=== PATIENT | male | born 1985 | race Caucasian/White ===

== ENCOUNTER → 2017-01-03 | Outpatient (CLI) | payer BC | LOC: M OUTALCOH 10:04 | PROVIDERS: ATTEND Psychiatry & Neurology Psychiatry | DX: F10.10 Alcohol abuse, uncomplicated (principal) ==

== ENCOUNTER 2017-01-21 11:51 | Outpatient (RCR) | payer BC | END 2017-02-17 | LOC: M OUTALCOH 11:51 | PROVIDERS: ATTEND Psychiatry & Neurology Psychiatry | DX: F10.20 Alcohol dependence, uncomplicated (principal); Z72.0 Tobacco use ==

== ENCOUNTER 2017-10-31 12:33 | Inpatient (IN) | payer BC, OTHER, MEDICAID ==
[2017-10-31 14:22] LABS: HEMATOCRIT 45.7 % (42.0-52.0); HEMOGLOBIN 15.4 g/dl (13.5-17.5); MEAN CORPUSCULAR HEMOGLOBIN 30.2 pg (27.0-33.0); MEAN CORPUSCULAR HGB CONC 33.7 g/dl (32.0-36.5); MEAN CORPUSCULAR VOLUME 89.6 fl (80.0-96.0); PLATELET COUNT, AUTOMATED 170 10^3/uL (150-450); RED CELL DISTRIBUTION WIDTH 13.5 % (11.5-14.5); WHITE BLOOD COUNT 4.8 10^3/uL (4.0-10.0)
[2017-10-31 14:41] LABS: AMPHETAMINES LEVEL URINE NEGATIVE (NEGATIVE); BARBITURATES URINE NEGATIVE (NEGATIVE); BENZODIAZEPINES URINE NEGATIVE (NEGATIVE); CANNABINOIDS URINE POSITIVE (NEGATIVE); COCAINE METABOLITE URINE POSITIVE (NEGATIVE); METHADONE URINE NEGATIVE (NEGATIVE); OPIATES URINE NEGATIVE (NEGATIVE); PHENCYCLIDINE URINE NEGATIVE (NEGATIVE)
[2017-10-31 14:53] LABS: ALBUMIN 3.9 GM/DL (3.2-5.2); ALBUMIN/GLOBULIN RATIO 1.26 (1.00-1.93); ALKALINE PHOSPHATASE 81 U/L (45-117); ALT/SGPT 31 U/L (12-78); ANION GAP 8 MEQ/L (8-16); AST/SGOT 9 U/L (7-37); BILIRUBIN,DIRECT 0.1 MG/DL (0.0-0.2); BILIRUBIN,TOTAL 0.4 MG/DL (0.2-1.0); BLOOD UREA NITROGEN 9 MG/DL (7-18); CALCIUM LEVEL 8.6 MG/DL (8.5-10.1); CARBON DIOXIDE LEVEL 29 MEQ/L (21-32); CHLORIDE LEVEL 109 MEQ/L (98-107); CREATININE FOR GFR 0.85 MG/DL (0.70-1.30); GLOMERULAR FILTRATION RATE > 60.0 (>60); GLUCOSE, FASTING 105 MG/DL (70-100); POTASSIUM SERUM 4.6 MEQ/L (3.5-5.1); SALICYLATE LEVEL < 1.7 MG/DL (5.0-30.0); SODIUM LEVEL 146 MEQ/L (136-145); THYROID STIMULATING HORMONE 0.321 uIU/ML (0.358-3.740)
[2017-10-31 14:56] LABS: ACETAMINOPHEN LEVEL < 2.0 UG/ML (10.0-30.0)
[2017-10-31] MEDS ORDERED: MAALOX 30 ML SUSP *UDC PO (20:30)
[2017-10-31] MEDS ORDERED: LORazepam 1 MG TAB PO (20:30)
[2017-10-31] MEDS ORDERED: MOM 30ML SUSPENSION UDC PO (20:30)
[2017-10-31] MEDS ORDERED: ACETAMINOPHEN TAB 650MG DOSE (2X325MG) PO (20:30)
[2017-10-31] MEDS ORDERED: traZODone 50 MG TAB PO (20:30)
[2017-10-31] MEDS ORDERED: OXAZEPAM 15 MG CAP PO (20:30)
[2017-11-01] MEDS: THIAMINE 100 MG TAB PO (10:27)
[2017-11-01] MEDS: MULTIVITAMINS/MINERALS THERAP 1 TAB PO (10:27)
[2017-11-01] MEDS: FOLIC ACID 1 MG TAB PO (10:27)
[2017-11-01 13:13] LABS: ANION GAP 6 MEQ/L (8-16); BLOOD UREA NITROGEN 16 MG/DL (7-18); CARBON DIOXIDE LEVEL 31 MEQ/L (21-32); CHLORIDE LEVEL 104 MEQ/L (98-107); CPK CREATINE PHOSPHOKINASE 137 U/L (39-308); CREATININE FOR GFR 0.99 MG/DL (0.70-1.30); GLOMERULAR FILTRATION RATE > 60.0 (>60); GLUCOSE, FASTING 116 MG/DL (70-100); POTASSIUM SERUM 4.6 MEQ/L (3.5-5.1); SODIUM LEVEL 141 MEQ/L (136-145)
[2017-11-01] MEDS ORDERED: hydrOXYzine 25 MG TAB PO (15:15)
[2017-11-02 07:33] LABS: ALBUMIN/GLOBULIN RATIO 1.29 (1.00-1.93); ALKALINE PHOSPHATASE 84 U/L (45-117); ALT/SGPT 31 U/L (12-78); ANION GAP 6 MEQ/L (8-16); AST/SGOT 6 U/L (7-37); BLOOD UREA NITROGEN 12 MG/DL (7-18); CALCIUM LEVEL 8.6 MG/DL (8.5-10.1); CARBON DIOXIDE LEVEL 33 MEQ/L (21-32); CHLORIDE LEVEL 102 MEQ/L (98-107); CREATININE FOR GFR 1.11 MG/DL (0.70-1.30); FREE THYROXINE INDEX 2.8 % (1.4-3.8); GLOMERULAR FILTRATION RATE > 60.0 (>60); GLUCOSE, FASTING 87 MG/DL (70-100); MAGNESIUM LEVEL 2.1 MG/DL (1.8-2.4); POTASSIUM SERUM 3.9 MEQ/L (3.5-5.1); SODIUM LEVEL 141 MEQ/L (136-145); T UPTAKE 36 % (33-40); THYROXINE (T4) 7.9 UG/DL (4.5-12.0); TOTAL PROTEIN 7.1 GM/DL (6.4-8.2)
[2017-11-02] MEDS: MULTIVITAMINS/MINERALS THERAP 1 TAB PO (08:31)
[2017-11-02] MEDS: SERTRALINE HCL 50 MG TAB PO (08:31)
[2017-11-02] MEDS: FOLIC ACID 1 MG TAB PO (08:31)
[2017-11-02] MEDS: THIAMINE 100 MG TAB PO (08:31)
[2017-11-03] MEDS: FOLIC ACID 1 MG TAB PO (08:29)
[2017-11-03] MEDS: THIAMINE 100 MG TAB PO (08:30)
[2017-11-03] MEDS: SERTRALINE HCL 50 MG TAB PO (08:30)
[2017-11-03] MEDS: MULTIVITAMINS/MINERALS THERAP 1 TAB PO (08:30)
== END 2017-11-03 10:35 | disposition home or self-care (01) | DRG 754 ==
LOC: M ED 12:33 → M ED INP 16:41 → M PSY 18:01
DX: F32.9 Major depressive disorder, single episode, unspecified (principal); E87.0 Hyperosmolality and hypernatremia; F41.8 Other specified anxiety disorders; F60.6 Avoidant personality disorder; F12.90 Cannabis use, unspecified, uncomplicated; F14.90 Cocaine use, unspecified, uncomplicated; F17.200 Nicotine dependence, unspecified, uncomplicated

== ENCOUNTER → 2017-11-11 | Outpatient (CLI) | payer BC | LOC: M OUTALCOH 09:19 | DX: F10.20 Alcohol dependence, uncomplicated (principal) ==

== ENCOUNTER 2017-11-25 11:25 | Outpatient (RCR) | payer BC | END 2017-12-18 | LOC: M OUTALCOH 11:25 | DX: F10.20 Alcohol dependence, uncomplicated (principal); F14.10 Cocaine abuse, uncomplicated; Z72.0 Tobacco use ==

== ENCOUNTER 2022-10-18 22:00 | Inpatient (IN) | payer BC ==
[~2022-10-18] VITALS: Ht 185.4 cm; Wt 82.6 kg
[~2022-10-18 22:00] MED LIST: SERT-141 PO; TRAZ1TAB10 PO
[2022-10-18 23:14] LABS: HEMOGLOBIN 15.2 g/dl (13.5-17.5); MEAN CORPUSCULAR HEMOGLOBIN 30.6 pg (27.0-33.0); MEAN CORPUSCULAR HGB CONC 33.8 g/dl (32.0-36.5); MEAN CORPUSCULAR VOLUME 90.7 fl (80.0-96.0); PLATELET COUNT, AUTOMATED 206 10^3/uL (150-450); RED BLOOD COUNT 4.96 10^6/uL (4.30-6.10); WHITE BLOOD COUNT 5.6 10^3/uL (4.0-10.0)
[2022-10-18 23:32] LABS: AMPHETAMINES LEVEL URINE NEGATIVE (NEGATIVE); BARBITURATES URINE NEGATIVE (NEGATIVE); BENZODIAZEPINES URINE NEGATIVE (NEGATIVE); METHADONE URINE NEGATIVE (NEGATIVE); OPIATES URINE NEGATIVE (NEGATIVE)
[2022-10-18 23:33] LABS: PHENCYCLIDINE URINE NEGATIVE (NEGATIVE)
[2022-10-18 23:34] LABS: ETHYL ALCOHOL (ETHANOL) 0.003 % (0.000-0.010)
[2022-10-18 23:36] LABS: SALICYLATE LEVEL < 3.0 MG/DL (<30)
[2022-10-18 23:37] LABS: ACETAMINOPHEN LEVEL < 2.0 UG/ML (10.0-20.0); CANNABINOIDS URINE POSITIVE (NEGATIVE); COCAINE METABOLITE URINE POSITIVE (NEGATIVE)
[2022-10-18 23:38] LABS: THYROID STIMULATING HORMONE 1.221 uIU/ML (0.55-4.78)
[2022-10-18 23:40] LABS: ALBUMIN 4.4 G/DL (3.2-5.2); ALKALINE PHOSPHATASE 91 U/L (46-116); ALT/SGPT 22 U/L (7.0-40); AST/SGOT < 8 U/L (<34); BILIRUBIN,DIRECT 0.1 MG/DL (<0.4); BILIRUBIN,TOTAL 0.5 MG/DL (0.3-1.2); BLOOD UREA NITROGEN 16 MG/DL (9-23); CALCIUM LEVEL 8.8 MG/DL (8.5-10.1); CARBON DIOXIDE LEVEL 29 MMOL/L (20-31); CHLORIDE LEVEL 103 MMOL/L (98-107); GLOMERULAR FILTRATION RATE > 60.0 (>60); GLUCOSE, FASTING 78 MG/DL (60-100); POTASSIUM SERUM 4.3 MMOL/L (3.5-5.1); SODIUM LEVEL 142 MMOL/L (136-145); TOTAL PROTEIN 6.9 G/DL (5.7-8.2)
[2022-10-19] MEDS ORDERED: HOME MED LIST COMPLETE! XX SCH (03:15)
[2022-10-19] MEDS ORDERED: IBUPROFEN 400MG TAB PO PRN (12:45)
[2022-10-19] MEDS ORDERED: ACETAMINOPHEN TAB 650MG DOSE (2X325MG) PO PRN (12:45)
[2022-10-19] MEDS ORDERED: traZODone 50 MG TAB PO PRN (12:45)
[2022-10-19] MEDS ORDERED: diphenhydrAMINE 25MG CAP PO PRN (12:45)
[2022-10-19] MEDS ORDERED: MAALOX 30 ML SUSP *UDC PO PRN (12:45)
[2022-10-19] MEDS ORDERED: MOM 30ML SUSPENSION UDC PO PRN (12:45)
[2022-10-19 16:07] VITALS: BP 116/67; TEMP 97.4; O2SAT 99
[2022-10-20 06:45] VITALS: BP_SYST 120; BP_SYST 122; BP_DIAS 64; BP_DIAS 72; TEMP 96.1; TEMP 96.8; O2SAT 98
[2022-10-20] MEDS ORDERED: DIVALPROEX 250MG TAB PO ONE (15:00)
[2022-10-20 16:39] VITALS: BP 116/62; TEMP 97.2; O2SAT 99
[2022-10-21 06:18] VITALS: BP 103/50; TEMP 97; O2SAT 98
[2022-10-21] MEDS: DIVALPROEX 250MG TAB PO SCH ×2 (09:23→20:47)
[2022-10-21] MEDS ORDERED: DEPA250T32 PO (13:53)
[2022-10-21 17:36] VITALS: BP 141/63; TEMP 97.1; O2SAT 98
[2022-10-22 06:26] VITALS: BP 116/58; TEMP 97; O2SAT 100
[2022-10-22] MEDS: DIVALPROEX 250MG TAB PO SCH (09:40)
== END 2022-10-22 11:15 | disposition home or self-care (01) | DRG 753 ==
LOC: M ED 22:00 → M ED INP 10-19 12:41 → M PSY 10-19 16:05
PROVIDERS: ADMIT Student in an Organized Health Care Education/Training Program; ATTEND Student in an Organized Health Care Education/Training Program
DX: F31.81 Bipolar II disorder (principal); F17.210 Nicotine dependence, cigarettes, uncomplicated; F10.10 Alcohol abuse, uncomplicated; F14.10 Cocaine abuse, uncomplicated; R63.4 Abnormal weight loss